=== PATIENT | male | born 1965 | race American Indian/Alaskan Native ===

== ENCOUNTER 2016-11-24 17:02 | Emergency (ER) | payer SELFPAY ==
[2016-11-24 17:27] VITALS: BP 141/93
[2016-11-24 18:29] LABS: Hematocrit 38.3 % (35.5-45.6); Hemoglobin 12.2 gm/dl (11.8-15.2); Mean Corpuscular HGB Conc 32 % (32-34); Mean Corpuscular Volume 77 fl (84-94); Platelet Count 166 K/mm3 (140-440); Red Blood Count 4.96 M/mm3 (3.65-5.03); Red Cell Distribution Width 15.8 % (13.2-15.2); White Blood Count 5.8 K/mm3 (4.5-11.0)
[2016-11-24 18:32] LABS: Mean Corpuscular Hemoglobin 25 pg (28-32)
[2016-11-24 18:47] LABS: Anion Gap 15 mmol/L; BUN/Creatinine Ratio 10; Blood Urea Nitrogen 12 mg/dL (9-20); Calcium 9.2 mg/dL (8.4-10.2); Carbon Dioxide 26 mmol/L (22-30); Chloride 103.9 mmol/L (98-107); Glucose 191 mg/dL (75-100); Potassium 4.2 mmol/L (3.6-5.0); Sodium 141 mmol/L (137-145)
--- NOTE | 2016-11-25 07:43 | XRay Report ---
ROUTINE CHEST, TWO VIEWS: HISTORY: Shortness of breath. Mild hyperinflation is suspected. There is minor linear scarring or atelectasis in the left lower lobe. Otherwise, the lungs are clear. No pleural effusion or pneumothorax. Heart and mediastinal structures are unremarkable. Normal bony thorax. IMPRESSION: Mild hyperinflation. Minor linear atelectasis or scarring in the left lower lobe. No acute process.
== END 2016-11-25 00:24 | disposition left against medical advice (07) ==
LOC: ED 17:02
DX: R06.02 Shortness of breath (principal); Z53.21 Procedure and treatment not carried out due to patient leaving prior to being seen by health care provider
CPT/HCPCS: 36415; 71020; 80048; 84484; 85025; 93005; 93010

== ENCOUNTER 2017-04-05 13:48 | Outpatient (CLI) | payer OTHER | END 2017-04-05 13:49 | disposition home or self-care (01) | LOC: PF 13:48 | PROVIDERS: ATTEND Internal Medicine | DX: J43.9 Emphysema, unspecified (principal); E11.9 Type 2 diabetes mellitus without complications; I10 Essential (primary) hypertension; H54.7 Unspecified visual loss; M79.2 Neuralgia and neuritis, unspecified; F17.200 Nicotine dependence, unspecified, uncomplicated | CPT/HCPCS: 94010; 94729 ==